=== PATIENT | female | born 2000 | race Caucasian/White ===

== ENCOUNTER 2022-11-16 13:19 | Outpatient (CLI) | payer OTHER | END 2022-11-16 13:31 | disposition home or self-care (01) | LOC: NST 13:19 | PROVIDERS: ATTEND Obstetrics & Gynecology | DX: Z34.83 Encounter for supervision of other normal pregnancy, third trimester (principal) ==

== ENCOUNTER 2022-12-06 16:46 | Inpatient (IN) | payer OTHER ==
[~2022-12-06] VITALS: Ht 149.9 cm; Wt 2.7 kg
[2022-12-07] MEDS ORDERED: MAXFE CAPLET1 EAC1 (08:33)
[2022-12-07] MEDS ORDERED: DOCUSATE CALCI240 MG (08:33)
== END 2022-12-10 13:00 | disposition home or self-care (01) | DRG 788 ==
LOC: LDR 16:46 → O/R 12-07 12:42 → OB/GYN 12-07 13:50
PROVIDERS: ADMIT Obstetrics & Gynecology; ATTEND Obstetrics & Gynecology
PROC: 3E0P7VZ Introduction of Hormone into Female Reproductive, Via Natural or Artificial Opening (ICD-10-PCS; 2022-12-06)
PROC: 4A1HXCZ Monitoring of Products of Conception, Cardiac Rate, External Approach (ICD-10-PCS; 2022-12-06)
PROC: 3E033VJ Introduction of Other Hormone into Peripheral Vein, Percutaneous Approach (ICD-10-PCS; 2022-12-07)
PROC: 10D00Z1 Extraction of Products of Conception, Low, Open Approach (ICD-10-PCS; principal; 2022-12-07 17:30)
DX: O61.0 Failed medical induction of labor (principal); O99.824 Streptococcus B carrier state complicating childbirth; Z3A.39 39 weeks gestation of pregnancy; Z37.0 Single live birth; Z20.822 Contact with and (suspected) exposure to COVID-19

== ENCOUNTER 2022-12-14 10:17 | Emergency (ER) | payer OTHER ==
[~2022-12-14] VITALS: Ht 149.9 cm; Wt 61.2 kg
[~2022-12-14 10:17] MED LIST: DOCUSATE CALCI240 MG; MAXFE CAPLET1 EAC1
[2022-12-14] MEDS ORDERED: TRANDATE300 MG PO (10:45)
[2022-12-14] MEDS ORDERED: MACRODANTIN100 M1 PO (12:02)
[2022-12-14] MEDS ORDERED: PYRIDIUM200 MG PO (12:02)
== END 2022-12-14 12:26 | disposition home or self-care (01) ==
LOC: ER 10:17
DX: N39.0 Urinary tract infection, site not specified (principal)